=== PATIENT | male | born 1935 | race Caucasian/White ===

== ENCOUNTER 2021-03-10 11:00 | Emergency (ER) | payer MEDICARE, OTHER ==
[2021-03-10 11:14] VITALS: BP 146/75; PULSE 88
[2021-03-10 12:55] LABS: CORONAVIRUS COVID-19 NAA NEGATIVE (NEGATIVE)
--- NOTE | 2021-03-10 13:32 | EDM.PDOC ---
ED HPI GENERAL MEDICAL PROBLEM - General Chief Complaint: Respiratory Problem Stated Complaint: HYPOXIA Time Seen by Provider: 03/10/21 13:12 Source of Information: Reports: Patient, RN Notes Reviewed History Limitations: Reports: No Limitations - History of Present Illness INITIAL COMMENTS - FREE TEXT/NARRATIVE: 86-year-old gentleman presents emergency department today complaint of fatigue and shortness of breath I was initially contacted by one of the primary care providers at the clinic at which time he was found to be hypoxic however when he arrived here his O2 saturation was 99%, he states he has been feeling poorly for the last couple weeks did find a tick on him he is not sure if it was a deer tick or a wood tick it was quite engorged so had been attached for some time - Related Data Allergies Allergy/AdvReac Type Severity Reaction Status Date / Time No Known Allergies Allergy Verified 03/10/21 12:00 Home Meds: Home Meds Aspirin [Boo Chewable] 81 mg PO DAILY 01/17/14 [History] Cholecalciferol (Vitamin D3) [Vitamin D] 400 units PO DAILY 01/17/14 [History] Multivitamin [Daily Multiple Vitamin] 1 tab PO DAILY 01/17/14 [History] Simvastatin [Zocor] 40 mg PO BEDTIME 01/17/14 [History] Vitamin E 400 unit PO DAILY 01/17/14 [History] glipiZIDE [Glipizide ER] 25 mg PO QAM 01/17/14 [History] metFORMIN [Glucophage] 1,000 mg PO BIDMEALS 01/17/14 [History] Ascorbic Acid [Vitamin C] 1,000 mg PO DAILY 01/30/15 [History] Vitamin A 8,000 unit PO DAILY 01/30/15 [History] Past Medical History HEENT History: Reports: Hard of Hearing Cardiovascular History: Reports: High Cholesterol Gastrointestinal History: Reports: Diverticulosis Endocrine/Metabolic History: Reports: Diabetes, Type II - Past Surgical History GI Surgical History: Reports: Colon, Colonoscopy, Other (See Below) Other GI Surgeries/Procedures: colon resection Social & Family History - Tobacco Use Tobacco Use Status *Q: Never Tobacco User - Caffeine Use Caffeine Use: Reports: None - Recreational Drug Use Recreational Drug Use: No ED ROS GENERAL - Review of Systems Review Of Systems: See Below Constitutional: Reports: Weakness, Fatigue. Denies: Fever, Chills HEENT: Reports: No Symptoms Respiratory: Reports: No Symptoms Cardiovascular: Reports: No Symptoms GI/Abdominal: Reports: No Symptoms ED EXAM, GENERAL - Physical Exam Exam: See Below Exam Limited By: No Limitations General Appearance: Alert, WD/WN, No Apparent Distress Respiratory/Chest: No Respiratory Distress, Lungs Clear, Normal Breath Sounds, No Accessory Muscle Use, Chest Non-Tender Cardiovascular: Regular Rate, Rhythm, No Murmur GI/Abdominal: Soft, Non-Tender #1 Interpretation EKG Date: 03/10/21 Time: 14:05 Rhythm: NSR [place]: LAD-Left [place] Deviation P-Wave: Present QRS: Normal ST-T: Normal QT: Normal Comparison: NA - No Prior EKG Course - Vital Signs Last Recorded V/S: Last Vital Signs Temp 98 F 03/10/21 11:58 Pulse 88 03/10/21 11:58 Resp 18 03/10/21 11:58 BP 146/75 H 03/10/21 11:58 Pulse Ox 99 03/10/21 11:58 - Orders/Labs/Meds Orders: Active Orders 24 hr Category Date Time Status Isolation [COMM] Stat Oth 03/10/21 11:24 Ordered EKG 12 Lead [EK] Urgent Ther 03/10/21 13:18 Ordered Labs: Laboratory Tests 03/10/21 03/10/21 03/10/21 Range/Units 11:23 13:30 13:30 WBC 11.0 (4.5-11.0) K/uL RBC 5.22 (4.30-5.90) M/uL Hgb 15.3 H (12.0-15.0) g/dL Hct 45.9 (40.0-54.0) % MCV 88 (80-98) fL MCH 29 (27-31) pg MCHC 33 (32-36) % Plt Count 194 (150-400) K/uL Neut % (Auto) 54.7 (36-66) % Lymph % (Auto) 37.0 (24-44) % Stevens % (Auto) 5.6 (2-6) % Eos % (Auto) 2.5 (2-4) % Baso % (Auto) 0.2 (0-1) % Sodium 142 (140-148) mmol/L Potassium 4.5 (3.6-5.2) mmol/L Chloride 104 (100-108) mmol/L Carbon Dioxide 31 (21-32) mmol/L Anion Gap 7.5 (5.0-14.0) mmol/L BUN 12 (7-18) mg/dL Creatinine 0.9 (0.8-1.3) mg/dL Est Cr Clr Drug Dosing 65.07 mL/min Estimated GFR (MDRD) > 60 (>60) Glucose 139 H (74-106) mg/dL Lactic Acid (0.4-2.0) mmol/L Calcium 9.0 (8.5-10.1) mg/dL Total Bilirubin 0.7 (0.2-1.0) mg/dL AST 20 (15-37) U/L ALT 44 (12-78) U/L Alkaline Phosphatase 99 (46-116) U/L Troponin I < 0.017 (0.000-0.056) ng/mL Total Protein 6.9 (6.4-8.2) g/dL Albumin 3.9 (3.4-5.0) g/dL Globulin 3.0 (2.3-3.5) g/dL Albumin/Globulin Ratio 1.3 (1.2-2.2) Urine Color (YELLOW) Urine Appearance (CLEAR) Urine pH (5.0-8.0) Ur Specific [place] (1.008-1.030) Urine Protein (NEGATIVE) mg/dL Urine Glucose (UA) (NEGATIVE) mg/dL Urine Ketones (NEGATIVE) mg/dL Urine Occult Blood (NEGATIVE) Urine Nitrite (NEGATIVE) Urine Bilirubin (NEGATIVE) Urine Urobilinogen (0.2-1.0) EU/dL Ur Leukocyte Esterase (NEGATIVE) Urine RBC (0-5) Urine WBC (0-5) Ur Epithelial Cells Amorphous Sediment Urine Bacteria Urine Mucus Influenza Type A RNA Negative (NEGATIVE) RSV RNA (INAAT) Negative (NEGATIVE) Influenza Type B RNA Negative (NEGATIVE) SARS-CoV-2 RNA (CATRINA) Negative (NEGATIVE) 03/10/21 03/10/21 Range/Units 13:30 13:51 WBC (4.5-11.0) K/uL RBC (4.30-5.90) M/uL Hgb (12.0-15.0) g/dL Hct (40.0-54.0) % MCV (80-98) fL MCH (27-31) pg MCHC (32-36) % Plt Count (150-400) K/uL Neut % (Auto) (36-66) % Lymph % (Auto) (24-44) % Stevens % (Auto) (2-6) % Eos % (Auto) (2-4) % Baso % (Auto) (0-1) % Sodium (140-148) mmol/L Potassium (3.6-5.2) mmol/L Chloride (100-108) mmol/L Carbon Dioxide (21-32) mmol/L Anion Gap (5.0-14.0) mmol/L BUN (7-18) mg/dL Creatinine (0.8-1.3) mg/dL Est Cr Clr Drug Dosing mL/min Estimated GFR (MDRD) (>60) Glucose (74-106) mg/dL Lactic Acid 0.9 (0.4-2.0) mmol/L Calcium (8.5-10.1) mg/dL Total Bilirubin (0.2-1.0) mg/dL AST (15-37) U/L ALT (12-78) U/L Alkaline Phosphatase (46-116) U/L Troponin I (0.000-0.056) ng/mL Total Protein (6.4-8.2) g/dL Albumin (3.4-5.0) g/dL Globulin (2.3-3.5) g/dL Albumin/Globulin Ratio (1.2-2.2) Urine Color Yellow (YELLOW) Urine Appearance Slightly cloudy A (CLEAR) Urine pH 5.5 (5.0-8.0) Ur Specific [place] 1.025 (1.008-1.030) Urine Protein Negative (NEGATIVE) mg/dL Urine Glucose (UA) 250 H (NEGATIVE) mg/dL Urine Ketones Negative (NEGATIVE) mg/dL Urine Occult Blood Negative (NEGATIVE) Urine Nitrite Negative (NEGATIVE) Urine Bilirubin Negative (NEGATIVE) Urine Urobilinogen 0.2 (0.2-1.0) EU/dL Ur Leukocyte Esterase Negative (NEGATIVE) Urine RBC Not seen (0-5) Urine WBC Not seen (0-5) Ur Epithelial Cells Rare Amorphous Sediment Rare Urine Bacteria Rare Urine Mucus Not seen Influenza Type A RNA (NEGATIVE) RSV RNA (INAAT) (NEGATIVE) Influenza Type B RNA (NEGATIVE) SARS-CoV-2 RNA (CATRINA) (NEGATIVE) Departure - Departure Time of Disposition: 15:23 Disposition: Home, Self-Care 01 Condition: Fair Clinical Impression: Fatigue Qualifiers: Fatigue type: unspecified Qualified Code(s): R53.83 - Other fatigue - Discharge Information Instructions: Fatigue Referrals: Jovan Lorenzo MD [Primary Care Provider] - Forms: ED Department Discharge Additional Instructions: Continue with your regular medications, please followup with your primary care provider in [days] days if not better, please call return to the emergency department with worsening of symptoms. A prescription for trazodone 50 mg once at night as needed for sleep was sent to your [facility] pharmacy Sepsis Event Note (ED) - Evaluation Sepsis Screening Result: No Definite Risk - Focused Exam Vital Signs: Vital Signs Temp Pulse Resp BP Pulse Ox 03/10/21 11:58 98 F 88 18 146/75 H 99 03/10/21 11:12 98 F 88 18 146/75 H 99 - My Orders Last 24 Hours: My Active Orders 03/10/21 11:24 Isolation [COMM] Stat 03/10/21 13:18 EKG 12 Lead [EK] Urgent - Assessment/Plan Last 24 Hours: My Active Orders 03/10/21 11:24 Isolation [COMM] Stat 03/10/21 13:18 EKG 12 Lead [EK] Urgent Plan: Assessment Acuity = acute Site and laterality = fatigue Etiology = unknown Manifestations = none Location of injury = Home Lab values = CBC, CMP, troponin, EKG all within normal limits chest x-ray shows no acute process Covid test was negative he never was hypoxic in the emergency department Plan Vascular him to continue with his current medication have him follow-up with his primary care in the next 3 to 5 days for reevaluation This note was dictated using [employer] voice recognition software please call with any questions on syntax or grammar.
--- NOTE | 2021-03-10 14:39 | CR ---
CHEST: 2 view CLINICAL HISTORY:SOB COMPARISON:None FINDINGS: There is some irregular density in the right midlung field. This may represent some pleural parenchymal scarring. Infiltrate is felt less likely. Heart and pulmonary mass clarity are normal. Lungs are generally hyperaerated.. Impression: Right midlung density laterally most likely represent some pleural parenchymal scarring. Acute infiltrate is felt less likely Hyperaeration
== END 2021-03-10 15:56 | disposition home or self-care (01) ==
LOC: JP.ED 11:00
DX: R53.83 Other fatigue (principal); E78.00 Pure hypercholesterolemia, unspecified; E11.9 Type 2 diabetes mellitus without complications; Z79.82 Long term (current) use of aspirin; Z79.84 Long term (current) use of oral hypoglycemic drugs; Z79.899 Other long term (current) drug therapy; Z20.822 Contact with and (suspected) exposure to COVID-19
CPT/HCPCS: 0241U; 36415; 71046; 80053; 81001; 83605; 84484; 85025; 93005; 99285